=== PATIENT | female | born 1975 | race African-American/Black ===

== ENCOUNTER 2022-04-28 11:22 | Emergency (ER) | payer OTHER ==
[~2022-04-28] VITALS: Ht 172.7 cm; Wt 90.0 kg
[2022-04-28] MEDS ORDERED: ACETAMINOPHEN 325MG TABLET PO ONE (12:15)
[2022-04-28] MEDS ORDERED: BACL-141 MT (14:45)
[2022-04-28] MEDS ORDERED: LIDO700A15 TP (14:45)
[2022-04-28] MEDS ORDERED: ACET-2708 MT (14:45)
[2022-04-28 15:07] VITALS: BP 163/104
[2022-04-28] MEDS ORDERED: METOCLOPRAMIDE HCL 5MG TABLET PO ONE (15:30)
== END 2022-04-28 15:30 | disposition home or self-care (01) ==
LOC: ER 11:44
DX: S13.4XXA Sprain of ligaments of cervical spine, initial encounter (principal); I10 Essential (primary) hypertension; V49.59XA Passenger injured in collision with other motor vehicles in traffic accident, initial encounter; Y93.89 Activity, other specified; Y92.89 Other specified places as the place of occurrence of the external cause; Y99.8 Other external cause status
CPT/HCPCS: 70450; 72125; 81025; 99284; J8597